=== PATIENT | female | born 1990 | race Caucasian/White ===

== ENCOUNTER → 2024-04-13 13:46 | Outpatient (CLI) | payer OTHER, SELFPAY | PROVIDERS: PCP Nurse Practitioner; Referring Provider Internal Medicine Hematology; Visit Provider Surgery | DX: T81.89XA Other complications of procedures, not elsewhere classified, initial encounter (principal); L98.8 Other specified disorders of the skin and subcutaneous tissue; S21.102A Unspecified open wound of left front wall of thorax without penetration into thoracic cavity, initial encounter; R21 Rash and other nonspecific skin eruption; R73.9 Hyperglycemia, unspecified; R07.89 Other chest pain; D64.9 Anemia, unspecified; D76.1 Hemophagocytic lymphohistiocytosis; D56.3 Thalassemia minor | CPT/HCPCS: 11042; 97605; 99203; 99213 ==

== ENCOUNTER → 2024-04-24 10:02 | Outpatient (CLI) | payer OTHER, SELFPAY | PROVIDERS: PCP Nurse Practitioner; Referring Provider Internal Medicine Hematology; Visit Provider Physician Assistant | DX: T81.89XA Other complications of procedures, not elsewhere classified, initial encounter (principal); L98.8 Other specified disorders of the skin and subcutaneous tissue; S21.102A Unspecified open wound of left front wall of thorax without penetration into thoracic cavity, initial encounter; L53.9 Erythematous condition, unspecified; R21 Rash and other nonspecific skin eruption; D76.1 Hemophagocytic lymphohistiocytosis; D64.9 Anemia, unspecified; M25.512 Pain in left shoulder | CPT/HCPCS: 11042; 87070; 87077; 87147; 87186; 87205; 97605; 99214 ==

== ENCOUNTER → 2024-04-27 15:13 | Outpatient (CLI) | payer OTHER, SELFPAY | PROVIDERS: PCP Nurse Practitioner; Referring Provider Internal Medicine Hematology; Visit Provider Physician Assistant | DX: T81.89XA Other complications of procedures, not elsewhere classified, initial encounter (principal); L98.8 Other specified disorders of the skin and subcutaneous tissue; S42.102A Fracture of unspecified part of scapula, left shoulder, initial encounter for closed fracture; L53.9 Erythematous condition, unspecified; D76.1 Hemophagocytic lymphohistiocytosis; R07.89 Other chest pain | CPT/HCPCS: 11042; 97605; 99214 ==

== ENCOUNTER → 2024-04-28 11:06 | Outpatient (CLI) | payer OTHER, SELFPAY | PROVIDERS: PCP Nurse Practitioner; Visit Provider Physician Assistant | DX: L08.9 Local infection of the skin and subcutaneous tissue, unspecified (principal) | CPT/HCPCS: 87070; 87077; 87147; 87205 ==

== ENCOUNTER → 2024-04-30 11:09 | Outpatient (CLI) | payer OTHER, SELFPAY | PROVIDERS: PCP Nurse Practitioner; Referring Provider Internal Medicine Hematology; Visit Provider Physician Assistant | DX: L97.322 Non-pressure chronic ulcer of left ankle with fat layer exposed (principal); L97.822 Non-pressure chronic ulcer of other part of left lower leg with fat layer exposed; I73.9 Peripheral vascular disease, unspecified; L53.9 Erythematous condition, unspecified; R60.0 Localized edema; L98.8 Other specified disorders of the skin and subcutaneous tissue | CPT/HCPCS: 97605 ==

== ENCOUNTER → 2024-05-04 11:15 | Outpatient (CLI) | payer OTHER, SELFPAY | LOC: WC 11:16 | PROVIDERS: PCP Nurse Practitioner; Referring Provider Internal Medicine Hematology; Visit Provider Surgery | DX: T81.89XA Other complications of procedures, not elsewhere classified, initial encounter (principal); L98.8 Other specified disorders of the skin and subcutaneous tissue; S21.109A Unspecified open wound of unspecified front wall of thorax without penetration into thoracic cavity, initial encounter; D76.1 Hemophagocytic lymphohistiocytosis; L53.9 Erythematous condition, unspecified; R21 Rash and other nonspecific skin eruption; D84.821 Immunodeficiency due to drugs; E09.65 Drug or chemical induced diabetes mellitus with hyperglycemia; D64.9 Anemia, unspecified; R73.9 Hyperglycemia, unspecified; Z79.52 Long term (current) use of systemic steroids | CPT/HCPCS: 11042; 97605 ==

== ENCOUNTER → 2024-05-07 13:46 | Outpatient (CLI) | payer OTHER, SELFPAY | PROVIDERS: PCP Nurse Practitioner; Referring Provider Nurse Practitioner; Visit Provider Surgery | DX: T81.89XA Other complications of procedures, not elsewhere classified, initial encounter (principal); L98.8 Other specified disorders of the skin and subcutaneous tissue; S21.109A Unspecified open wound of unspecified front wall of thorax without penetration into thoracic cavity, initial encounter; L53.9 Erythematous condition, unspecified; R21 Rash and other nonspecific skin eruption | CPT/HCPCS: 97605 ==

== ENCOUNTER → 2024-05-11 11:57 | Outpatient (CLI) | payer OTHER, SELFPAY | PROVIDERS: PCP Nurse Practitioner; Referring Provider Nurse Practitioner; Visit Provider Surgery | DX: T81.89XA Other complications of procedures, not elsewhere classified, initial encounter (principal); L98.8 Other specified disorders of the skin and subcutaneous tissue; S21.102A Unspecified open wound of left front wall of thorax without penetration into thoracic cavity, initial encounter; D64.9 Anemia, unspecified; D76.1 Hemophagocytic lymphohistiocytosis; D84.821 Immunodeficiency due to drugs; R73.9 Hyperglycemia, unspecified | CPT/HCPCS: 11042; 97605; 99213 ==

== ENCOUNTER → 2024-05-14 11:54 | Outpatient (CLI) | payer OTHER, SELFPAY | PROVIDERS: PCP Nurse Practitioner; Referring Provider Internal Medicine Hematology; Visit Provider Surgery | DX: T81.89XA Other complications of procedures, not elsewhere classified, initial encounter (principal); L98.8 Other specified disorders of the skin and subcutaneous tissue; S21.102A Unspecified open wound of left front wall of thorax without penetration into thoracic cavity, initial encounter; L53.9 Erythematous condition, unspecified; R21 Rash and other nonspecific skin eruption | CPT/HCPCS: 97605 ==